=== PATIENT | female | born 1995 | race Caucasian/White ===

== ENCOUNTER 2022-01-01 22:11 | Emergency (ER) | payer OTHER ==
[~2022-01-01] VITALS: Ht 160 cm; Wt 99.8 kg
--- NOTE | 2022-01-01 22:12 | NUR ---
PT [facility]. TAKEN TO BED 6
[2022-01-01 22:22] VITALS: BP 141/90
--- NOTE | 2022-01-01 22:29 | NUR ---
26 Y/O F BIBA FROM [facility] C/O BLACK OUT AND WOKE UP ON FLOOR CONFUSED NOT KNOWING WHAT HAPPEN, +HEADACHE. UNKNOWN IF HIT HEAD, DENIES BODILY PAIN PMH: ANXIETY, BORDERLINE PERSONALITY DISORDER, DEPRESSION, CEREBRAL PALSY, EATING DISORDER (BULIMIA) MEDS:PROZAC, GABAPENTIN, RISPERDAL, TRILEPTAL, TRAZADONE NKDA [facility] FOOD ALLERGY
--- NOTE | 2022-01-01 23:26 | NUR ---
SPOKE TO [facility] TO ARRANGE TRANSPORT. WILL CALL BACK TO NOTIFY OF ETA
[2022-01-02 00:11] VITALS: BP 134/61
--- NOTE | 2022-01-02 00:12 | NUR ---
Patient discharged with v/s stable. Written and verbal after care instructions given and explained. Patient verbalized understanding. Ambulatory with steady gait. All questions addressed prior to discharge. Advised to follow up with PMD.
== END 2022-01-02 00:11 | disposition home or self-care (01) ==
LOC: MED 22:11
DX: R55 Syncope and collapse (principal); R42 Dizziness and giddiness; F41.9 Anxiety disorder, unspecified; F32.9 Major depressive disorder, single episode, unspecified; Z98.890 Other specified postprocedural states; Z98.84 Bariatric surgery status
CPT/HCPCS: 93005; 99283